=== PATIENT | male | born 1975 | race Caucasian/White ===

== ENCOUNTER 2018-10-10 07:50 | Emergency (ER) | payer BC ==
[~2018-10-10] VITALS: Ht 190.5 cm; Wt 88.0 kg
== END 2018-10-10 13:25 | disposition home or self-care (01) ==
LOC: ER 07:50
DX: K29.70 Gastritis, unspecified, without bleeding (principal); R07.2 Precordial pain

== ENCOUNTER 2019-03-06 14:00 | Emergency (ER) | payer BC ==
[~2019-03-06] VITALS: Ht 190.5 cm; Wt 89.8 kg
[2019-03-06] MEDS ORDERED: TAMS0.4C PO (18:19)
[2019-03-06] MEDS ORDERED: URIN D.S. TABL1 EACH PO (18:19)
[2019-03-06] MEDS ORDERED: KETO10TA2 PO (18:19)
== END 2019-03-06 19:07 ==
LOC: ER 14:00
DX: R10.31 Right lower quadrant pain (principal)